=== PATIENT | female | born 1935 | race Caucasian/White ===

== ENCOUNTER → 2016-09-05 | Outpatient (CLI) | payer OTHER ==
[~2016-09-05] MED LIST: AMARYL2 MG PO; BENICAR HCT 40-1 TA2 PO; CALCIUM + D 6001 TA1 PO; CRESTOR10 MG PO; GNP B-COMPLEX1 EACH PO; JANUVIA50 MG PO; OMEPRAZOLE40 MG PO; VITAL-D RX TABL1 TAB PO
--- NOTE | ~2016-09-05 | MY29 ---
[facility] A Service of [facility] RADIOLOGY TEXT RESULTS PATIENT: LYNN CHRISTENSEN LOCATION: [facility] : 39 UNIT #: [id number] AGE: [address]: Jacy Gudino MD SEX: F ORDER DR: [id number] [facility] [address] [place], [place] [address] [id number] O MR#: [id number] Acc #: [id number] NAME: LYNN CHRISTENSEN : 1935 SEX: F STUDY DATE/TIME: 09/05/2016 9:45 UNIT: [facility] ROOM: STUDY DESCRIPTION: MY REHAN SCREENING W/ CAD BILAT Attending Physician: Jacy Gudino M.D. Referring Physician: Jacy Gudino M.D. Ordering Physician: Jacy Gudino M.D. Primary Care Physician: Jacy Gudino M.D. MEDICAL IMAGING REPORT This report is preliminary unless electronic signature is present EXAM Digital screening mammogram 09/05/2016. HISTORY A 81-year-old woman no risk elevation. Annual screening. COMPARISON STUDIES Mammograms date to 04/18/2008 with most recent 09/04/2015 FINDINGS Digital imaging of each breast was completed utilizing screening protocol. Review includes FDA-approved CAD device. Breast parenchyma is partially fatty replaced. Subareolar duct prominence is again noted with a stable dominance on the right. There is no interval occurring mass. There are no suspicious microcalcifications and no architectural deformity. IMPRESSION Stable benign mammogram. Annual screening recommended. Patients over the age of 40 are entered into a reminder system with target due date for the next mammogram. A result letter will also be sent to the patient. BIRADS: 2 Benign Finding Dictated by... Efrain Wilde M.D. THIS IS AN ELECTRONICALLY VERIFIED REPORT Efrain Wilde M.D. at 09/05/2016 2:39 PM JBB/viridiana [facility] A Service of [facility] RADIOLOGY TEXT RESULTS PATIENT: LYNN CHRISTENSEN LOCATION: [facility] : 39 UNIT #: [id number] AGE: [address]: Jacy Gudino MD SEX: F ORDER DR: TD: 09/05/2016 14:34 JOB #: [id number] MEDICAL IMAGING REPORT Page 1 of 1 COPY
== END | disposition home or self-care (01) ==
LOC: CWCC 09:21
DX: Z12.31 Encounter for screening mammogram for malignant neoplasm of breast (principal)
CPT/HCPCS: G0202